=== PATIENT | female | born 1990 | race Caucasian/White ===

== ENCOUNTER 2019-05-09 19:01 | Emergency (ER) | payer MEDICAID ==
[~2019-05-09] VITALS: Ht 167.6 cm; Wt 100.0 kg
[2019-05-09 19:15] VITALS: BP 126/89
--- NOTE | 2019-05-09 19:28 | NUR ---
PT BIB EMS ACCOMPANY BY LAW [employer]NF[employer]ENT, IN RESTRAINTS BY EMS. PER LAW [employer] THERE WAS AGRESSIVE BEHAVIOR BETWEEN PT AND FAMILY. PT STATED TO EMS AND LAW ENF[employer]EMENT THAT SHE WANTED TO HARM HERSELF, AND INJESTED LIQUID MORPHINE. PT IS A&OX4, UPSET AND NOT ANSWERING QUESTIONS. REFUSED TO PROVIDE URINE SAMPLE. WONT ANSWER TO RN IF SHE IS SI OR SA, OR WANTS TO HARM HERSELF. SHE STATES "THEY TOOK MY KIDS"
[2019-05-09 19:42] LABS: BASOPHILS # (AUTO) 0.04 x10^3/uL (0-0.1); BASOPHILS % (AUTO) 0 % (0-1); EOSINOPHILS # (AUTO) 0.04 x10^3/uL (0-0.4); EOSINOPHILS % (AUTO) 0 % (1-7); LYMPHOCYTES # (AUTO) 1.72 x10^3/uL (1-3.4); LYMPHOCYTES % (AUTO) 17 % (22-44); MD NO; MEAN CORPUSCULAR HEMOGLOBIN 21.7 pg (27.0-34.8); MEAN CORPUSCULAR HGB CONC 31.1 g/dL (32.4-35.8); MEAN PLATELET VOLUME 8.8 fL (7.4-10.4); MONOCYTES # (AUTO) 0.55 x10^3/uL (0.2-0.8); MONOCYTES % (AUTO) 6 % (2-9); NEUTROPHILS # (AUTO) 7.55 x10^3/uL (1.8-6.8); NEUTROPHILS % (AUTO) 76 % (42-75); PLATELET COUNT 306 x10^3/uL (130-400); RED BLOOD COUNT 4.99 x10^6/uL (3.82-5.3); RED CELL DISTRIBUTION WIDTH 17.4 % (9.6-15.2)
--- NOTE | 2019-05-09 19:46 | NUR ---
PT IS REFUSING TO VOID AND PROVIDE UA. REFUSING TO GET IN GOWN. LAW [employer] AT BEDSIDE.
[2019-05-09 19:52] LABS: ALANINE AMINOTRANSFERASE 20 U/L (12-78); ALBUMIN 4.1 g/dL (3.4-5.0); ANION GAP 10 mmol/L (5-15); CALCIUM 8.7 mg/dL (8.5-10.1); CHLORIDE 108 mmol/L (98-107); CREATININE 0.71 mg/dL (0.55-1.02)
[2019-05-09 19:53] LABS: SALICYLATE LEVEL < 1.7 mg/dL (2.8-20.0)
[2019-05-09 19:57] LABS: ALKALINE PHOSPHATASE 43 U/L (45-117); BILIRUBIN,TOTAL 0.4 mg/dL (0.2-1.0)
--- NOTE | 2019-05-09 20:28 | NUR ---
PT PROVIDED UA SAMPLE. WAITING FOR RESULTS. LAW [employer] PRESENT.
[2019-05-09 20:37] LABS: AMPHETAMINE SCREEN, URINE Negative (Negative); BARBITURATE SCREEN, URINE Negative (Negative); BENZODIAZEPINE SCREEN, URINE Negative (Negative); CANNABINOID SCREEN, URINE Negative (Negative); COCAINE SCREEN, URINE Negative (Negative); METHADONE SCREEN, URINE Negative (Negative); OPIATE SCREEN, URINE Negative (Negative)
--- NOTE | 2019-05-09 20:46 | NUR ---
TO BE DC
--- NOTE | 2019-05-09 20:53 | NUR ---
Patient/Caregiver given discharge instructions and they have confirmed that they understand the instructions. Patient ambulatory with steady gait with law enforcement.
== END 2019-05-09 20:58 | disposition home or self-care (01) ==
LOC: ED 20:52
DX: Z02.89 Encounter for other administrative examinations (principal)
CPT/HCPCS: 36415; 80053; 80307; 84703; 85025; 99283